=== PATIENT | male | born 1980 | race African-American/Black ===

== ENCOUNTER 2019-05-26 21:14 | Emergency (ER) | payer MEDICAID ==
[~2019-05-26] VITALS: Ht 182.9 cm; Wt 82.6 kg
--- NOTE | 2019-05-26 21:42 | NUR ---
RECEIVED PATIENT VIA WHEELCHAIR, DROPPED OFF BY PER PATIENT. C/C PAIN ON R ARM DOWN TO FINGERS, PATIENT UNABLE TO TOUCH R THUMBS TO FINGERS; PAIN R LEG, R KNEE AND R FOOT 02/01. PLACED ON BED COMFORTABLY.
--- NOTE | 2019-05-26 22:06 | NUR ---
SEEN AND EXAMINED BY
[2019-05-26] MEDS ORDERED: IBUPROFEN 600 MG TABLET PO ONE ×2 (22:16→22:30)
--- NOTE | 2019-05-26 22:20 | NUR ---
ORDERED X-RAY DONE AT BEDSIDE.
--- NOTE | 2019-05-27 00:26 | NUR ---
DISCHARGE INSTRUCTIONS GIVEN TO PATIENT, VERBALIZED UNDERSTANDING. DISCHARGE PAPERS SIGNED BY THE PATIENT. INSTRUCTED PATIENT THAT FOR WORSENING CONDITION TO VISIT AN ER OR SEE A DOCTOR RO AND FOR EMERGENCY TO CALL 911.
--- NOTE | 2019-05-27 00:32 | NUR ---
PATIENT REQUESTED A WHEELCHAIR FOR HIM TO BE OUT OF ER. PATIENT MADE A PHONE CALL BEFORE LEAVING. WHEELED TO OUTSIDE OF ER BY TRAPPER ANIMAL.
[2019-05-27 00:38] VITALS: BP 113/62
== END 2019-05-27 00:38 | disposition home or self-care (01) ==
LOC: ER 21:17
DX: S63.591A Other specified sprain of right wrist, initial encounter (principal); S93.491A Sprain of other ligament of right ankle, initial encounter; S80.01XA Contusion of right knee, initial encounter; J45.909 Unspecified asthma, uncomplicated; F12.90 Cannabis use, unspecified, uncomplicated; V19.9XXA Pedal cyclist (driver) (passenger) injured in unspecified traffic accident, initial encounter; Y93.55 Activity, bike riding; Y92.89 Other specified places as the place of occurrence of the external cause; Y99.8 Other external cause status
CPT/HCPCS: 73110; 73564-TC; 73610-TC

== ENCOUNTER 2019-06-02 19:19 | Emergency (ER) | payer OTHER, MEDICAID ==
[~2019-06-02] VITALS: Ht 185.4 cm; Wt 74.4 kg
--- NOTE | 2019-06-02 20:12 | NUR ---
Patient medically cleared and OK to book by Dr. Sanchez. Patient discharged to [employer] officers custody in stable condition. Written and verbal after care instructions given. Patient refused to sign discharge papers but verbalizes understanding of instruction.Patient handcuffed by [employer] officers and escorted out of ER.
[2019-06-02 20:14] VITALS: BP 142/76
== END 2019-06-02 20:15 ==
LOC: ER 19:23
DX: F19.10 Other psychoactive substance abuse, uncomplicated (principal); J45.909 Unspecified asthma, uncomplicated; F14.10 Cocaine abuse, uncomplicated; F17.200 Nicotine dependence, unspecified, uncomplicated; R00.0 Tachycardia, unspecified; Z02.89 Encounter for other administrative examinations

== ENCOUNTER 2019-07-17 03:00 | Emergency (ER) | payer MEDICAID, OTHER ==
[~2019-07-17] VITALS: Ht 182.9 cm; Wt 87.1 kg
[2019-07-17 03:10] VITALS: BP 117/70
[2019-07-17] MEDS ORDERED: LORAZEPAM 1 MG TABLET ONE ×2 (03:12→03:13)
[2019-07-17] MEDS ORDERED: LORAZEPAM 1 MG TABLET PO ONE (03:30)
== END 2019-07-17 05:05 | disposition home or self-care (01) ==
LOC: ER 03:05
DX: R07.89 Other chest pain (principal); F19.10 Other psychoactive substance abuse, uncomplicated; I10 Essential (primary) hypertension; J45.909 Unspecified asthma, uncomplicated; F20.9 Schizophrenia, unspecified; F31.9 Bipolar disorder, unspecified; F17.200 Nicotine dependence, unspecified, uncomplicated
CPT/HCPCS: 71045-TC

== ENCOUNTER 2019-07-17 18:05 | Emergency (ER) | payer MEDICAID ==
[~2019-07-17] VITALS: Ht 188 cm; Wt 78.0 kg
--- NOTE | 2019-07-17 18:30 | NUR ---
CALLED IN TRIAGE NO LEFT ANSWER. Addendum: 07/17/19 at 1850 by BRITTANYANCES CALLED FOR TRIAGE, NO ANSWER
--- NOTE | 2019-07-17 18:49 | NUR ---
CALLED IN WAITING ROOM NO ANSWER
--- NOTE | 2019-07-17 19:12 | NUR ---
CALLED FOR PT. NO RESPONSE IN WR
--- NOTE | 2019-07-17 19:55 | NUR ---
PT BI S. C/O "GLF YESTERDAY, HAVING R ANKLE PAIN AND R RIB PAIN TODAY" -KO. AOX4. VSS. AMBULATORY. -DIZZY. -SI -HI. BREATHING EVEN AND UNLABORED ON ROOM AIR W/ NAD NOTED. PT CONNECTED TO THE MONITOR.
--- NOTE | 2019-07-17 21:42 | NUR ---
Patient discharged to home in stable condition. Written and verbal after care instructions given. Patient verbalizes understanding of instruction.
[2019-07-17 21:43] VITALS: BP 118/74
== END 2019-07-17 21:43 | disposition home or self-care (01) ==
LOC: ER 18:08
DX: M25.571 Pain in right ankle and joints of right foot (principal); R07.81 Pleurodynia; F29 Unspecified psychosis not due to a substance or known physiological condition; I10 Essential (primary) hypertension; J45.909 Unspecified asthma, uncomplicated; F17.200 Nicotine dependence, unspecified, uncomplicated
CPT/HCPCS: 71045-TC; 73610-TC

== ENCOUNTER 2022-08-14 04:22 | Emergency (ER) | payer MEDICAID ==
[~2022-08-14] VITALS: Ht 182.9 cm; Wt 88.5 kg
--- NOTE | 2022-08-14 04:38 | NUR ---
[facility] [employer] SEEKING VOLUNT[facility] ADMISSION FOR FEELING SUICIDAL. AFTER TRIAGE, PT CHANGED HIS MIND BECAUSE HE DOES NOT WANT TO CHANGE INTO A GOWN AND SURRENDER HIS BELONGINGS. PT WALKED OUT AND LEFT.
[2022-08-14 04:42] VITALS: BP 149/79
== END 2022-08-14 04:43 | disposition left against medical advice (07) ==
LOC: ER 04:28
DX: Z53.21 Procedure and treatment not carried out due to patient leaving prior to being seen by health care provider (principal)